=== PATIENT | female | born 1990 | race Caucasian/White ===

== ENCOUNTER 2019-04-05 13:08 | Emergency (ER) | payer OTHER, SELFPAY ==
[2019-04-05 13:25] VITALS: BP 128/90; PULSE 90; RESP 18; TEMP 36.9; O2SAT 98; BMI 25.7
--- NOTE | 2019-04-05 13:47 | DI.US.S_ITS ---
PROCEDURE: US PELVIC COMPLETE INDICATIONS: PELVIC PAIN RIGHT OVARY HURTS TECHNIQUE: Real-time scanning was performed of the pelvic organs, with image documentation. No transvaginal imaging was obtained, secondary to patient pain. COMPARISON: None. FINDINGS: Transabdominal scanning: Limited scanning through the kidneys shows no hydronephrosis. No pathologic free abdominal or pelvic fluid. Endovaginal scanning: Uterus: Uterus is normal in size at 8.9 x 3.7 x 4.3 cm. The endometrium measures 3 mm in combined thickness. An IUD is seen at its expected location. Ovaries: The right ovary measures 4.1 x 2.6 x 2.6 cm. The left ovary measures 4.3 x 3.2 x 2.6 cm. The ovaries have a normal sonographic appearance, with several follicles seen. A dominant follicle seen on the left measuring up to 2.4 cm. No adnexal masses are seen. Normal appearing arterial flow is confirmed to each ovary. IMPRESSION: No imaging explanation is found for this patient's presenting symptoms. Dictated by: Julián Kilgore M.D. on 04/05/2019 at 13:54 Approved by: Julián Kilgore M.D. on 04/05/2019 at 13:56
--- NOTE | 2019-04-05 14:51 | ED_ITS ---
HPI - Female Genitourinary <UZIEL Roy - Last Filed: 04/05/19 17:25> General Chief complaint: Urogenital-Female Stated complaint: pelvic pain on right side passed out Time Seen by Provider: 04/05/19 14:05 Source: patient Mode of arrival: Wheelchair History of Present Illness HPI Narrative: 28-year-old female with a history of endometriosis, presents emergency department today complaining of a worsening exacerbation of her endometriosis pain since yesterday. She states she has a dull aching right- sided pain that is worse with palpation and movement. She has been taking Tylenol. She states she has stopped taking NSAIDs for the past few months as her primary care provider was worried about her getting ulcer. She denies any vaginal bleeding or dysuria at this time. Patient reports nausea but denies vomiting, chest pain, shortness of breath, high fevers, or other concerns. Patient states she does not have her appendix. She reports she usually takes 4 mg of Dilaudid for pain. Related Data Previous Rx's Medication Instructions Recorded oxycodone 5 mg PO Q6H PRN #14 tab 04/05/19 Review of Systems <UZIEL Roy - Last Filed: 04/05/19 17:25> Review of Systems Narrative: REVIEW OF SYSTEMS: GENERAL: Denies fever, chills, malaise, or wt. loss. HENT: No head trauma, sore throat, or dysphagia. EYES: No loss of vision, double vision, eye pain, or irritation. CARDIOVASCULAR: No chest pain, palpitations, or orthopnea. RESPIRATORY: No shortness of breath or cough. GASTROINTESTINAL: Complains of right lower quadrant abdominal pain, see HPI GENITOURINARY: No flank pain, urinary incontinence, hesitancy, frequency, or dysuria. No vaginal discharge or dyspareunia. Denies concerns for STIs MUSCULOSKELETAL: No pain, weakness, or trauma. INTEGUMENTARY: No rash, lesions, or pruritus. NEURO: No numbness, tingling, memory loss, confusion, or headaches. PSYCH: No behavior or mood changes. Patient History <UZIEL Roy - Last Filed: 04/05/19 17:25> alcohol intake frequency: other Substance Use Type: does not use Exam <UZIEL Roy - Last Filed: 04/05/19 17:25> Initial Vital Signs Initial Vital Signs: Vital Signs Temperature 98.4 F 04/05/19 13:25 Pulse Rate 90 04/05/19 13:25 Respiratory Rate 18 04/05/19 13:25 Blood Pressure 128/90 04/05/19 13:25 Pulse Oximetry 98 04/05/19 13:25 PHYSICAL EXAMINATION: GENERAL: Well groomed, alert, and cooperative. Answers questions promptly and appropriately. Vital signs noted. HENT: Normocephalic, atraumatic. Hearing intact. Oral mucosa is pink and moist. EYES: Conjunctiva pink, sclera white, no periorbital swelling. CARDIOVASCULAR: S1 and S2 sounds normal. Regular rate and rhythm, no murmurs, clicks, or bruits. No pedal edema. RESPIRATORY: Normal respiratory rate, trachea midline, airway patent. No stridor, nasal flaring or accessory muscle use. Lungs are clear in all peterson without wheeze, rhonchi, or crackles. GASTROINTESTINAL: Bowel sounds normoactive. Tenderness to right and mid lower abdominal area. No rebound tenderness. No organomegaly, no palpable masses. GENITALURINARY: No flank tenderness. MUSCULOSKELETAL: Normal gait and coordination. Equal tone and mass bilaterally. EXTREMITIES: CMS intact, no pedal edema. SKIN: Warm, dry, soft, appropriate color for ethnicity. No lesions, rashes, or wounds. NEURO: Alert and Oriented X 3. Good coordination. No ataxia, or sensory deficits, or cognitive issues. PSYCH: Appropriate affect and mood. <Cande House DO - Last Filed: 04/05/19 17:35> Initial Vital Signs Initial Vital Signs: Vital Signs Temperature 98.4 F 04/05/19 13:25 Pulse Rate 90 04/05/19 13:25 Respiratory Rate 18 04/05/19 13:25 Blood Pressure 128/90 04/05/19 13:25 Pulse Oximetry 98 04/05/19 13:25 Course <UZIEL Roy - Last Filed: 04/05/19 17:25> Course Course Narrative: Pelvic ultrasound was ordered, patient refused the inter vaginal portion of this examination. Patient was given 30 mg of IM Toradol, 1 mg of IM Dilaudid, and 1 Percocet. She reports her pain has improved but she has a high pain tolerance in usually receives 4 mg of Dilaudid IM. I had a discussion with patient at this time that this large of dose will not happen. Patient was understandably agreeable. Orders Ordered: ED Orders 04/05/19 13:47 US pelvic complete Stat Discontinued Medications Hydromorphone HCl (Dilaudid) 1 mg IM NOW ONE Stop: 04/05/19 15:55 Last Admin: 04/05/19 16:07 Dose: 1 mg Documented by: SANIYA Ketorolac Tromethamine (Toradol) 30 mg IM NOW ONE Stop: 04/05/19 14:49 Last Admin: 04/05/19 15:03 Dose: 30 mg Documented by: BERE Ondansetron HCl (Zofran Odt) 4 mg SL NOW ONE Stop: 04/05/19 14:53 Last Admin: 04/05/19 15:02 Dose: 4 mg Documented by: BERE Oxycodone/Acetaminophen (Percocet 5/325) 1 tab PO NOW ONE Stop: 04/05/19 14:49 Last Admin: 04/05/19 15:02 Dose: 1 tab Documented by: BERE Consultations Consultation #1: Patient staffed with Dr. House Vital Signs Vital signs: Vital Signs - 8 hr 04/05/19 13:25 04/05/19 15:10 Temperature 98.4 F Pulse Rate 90 71 Respiratory Rate 18 16 Blood Pressure 128/90 Blood Pressure [Right Arm] 115/74 Pulse Oximetry 98 99 <Cande House, DO - Last Filed: 04/05/19 17:35> Orders Ordered: ED Orders 04/05/19 13:47 US pelvic complete Stat Discontinued Medications Hydromorphone HCl (Dilaudid) 1 mg IM NOW ONE Stop: 04/05/19 15:55 Last Admin: 04/05/19 16:07 Dose: 1 mg Documented by: SANIYA Ketorolac Tromethamine (Toradol) 30 mg IM NOW ONE Stop: 04/05/19 14:49 Last Admin: 04/05/19 15:03 Dose: 30 mg Documented by: BERE Ondansetron HCl (Zofran Odt) 4 mg SL NOW ONE Stop: 04/05/19 14:53 Last Admin: 04/05/19 15:02 Dose: 4 mg Documented by: BERE Oxycodone/Acetaminophen (Percocet 5/325) 1 tab PO NOW ONE Stop: 04/05/19 14:49 Last Admin: 04/05/19 15:02 Dose: 1 tab Documented by: BERE Vital Signs Vital signs: Vital Signs - 8 hr 04/05/19 13:25 04/05/19 15:10 Temperature 98.4 F Pulse Rate 90 71 Respiratory Rate 18 16 Blood Pressure 128/90 Blood Pressure [Right Arm] 115/74 Pulse Oximetry 98 99 MDM - Female Genitourinary <UZIEL Roy - Last Filed: 04/05/19 17:25> Medical Records Attestation: I reviewed the patient's medical records. Lab Data Attestation: I reviewed the patient's lab results. Labs: Point of Care Testing Test Results Negative Urine Dip Bedside Urine Glucose Negative Bedside Urine Bilirubin - Negative Bedside Urine Ketone - Negative Urine Specific [place] 1.010 Bedside Urine Occult Blood - Negative Bedside Urine pH 6.0 Bedside Urine Protein - Negative Bedside Urine Urobilinogen - Negative Bedside Urine Nitrite - Negative Bedside Urine Leukocytes - Negative Esterase Imaging Data US - [employer]: Radiologist's Impression: [place] [address] Ultrasound Report Signed Patient: Warren Burger#: [id number] : 1990Acct:[id number] Age/Sex: 28 / FDate of Service: 04/05/19 Loc: ED Accession Number: [id number] Procedure: US pelvic complete Ordering Provider: Jill Baum PROCEDURE: US PELVIC COMPLETE INDICATIONS: PELVIC PAIN RIGHT OVARY HURTS TECHNIQUE: Real-time scanning was performed of the pelvic organs, with image documentation. No transvaginal imaging was obtained, secondary to patient pain. COMPARISON: None. FINDINGS: Transabdominal scanning: Limited scanning through the kidneys shows no hydronephrosis. No pathologic free abdominal or pelvic fluid. Endovaginal scanning: Uterus: Uterus is normal in size at 8.9 x 3.7 x 4.3 cm. The endometrium measures 3 mm in combined thickness. An IUD is seen at its expected location. Ovaries: The right ovary measures 4.1 x 2.6 x 2.6 cm. The left ovary measures 4.3 x 3.2 x 2.6 cm. The ovaries have a normal sonographic appearance, with several follicles seen. A dominant follicle seen on the left measuring up to 2.4 cm. No adnexal masses are seen. Normal appearing arterial flow is confirmed to each ovary. IMPRESSION: No imaging explanation is found for this patient's presenting symptoms. Dictated by: Julián Kilgore M.D. on 04/05/2019 at 13:54 Approved by: Julián Kilgore M.D. on 04/05/2019 at 13:56 [facility] Narrative Medical decision making narrative: 28-year-old female with a history of endometriosis reporting a ?bad exacerbation ?presents emergency department for worsening right-sided pain. She reports she does not have her appendix. Abdominal ultrasound was conducted that shows normal blood flow to both ovaries. Patient declined the inner vaginal portion of the ultrasound. I suspect patient's pain is most likely caused by worsening endometriosis. Differential also includes gastroenteritis but less likely due to lack of vomiting or diarrhea. Less likely ovarian torsion or tubal as POC preg test was negative and normal blood flow was seen on ultrasound to both ovaries. Patient was given pain medications in the emergency department which improved her pain. She was counseled extensively about the importance of follow-up with her primary care provider in [employer]. Patient was given strict return precautions. <Cande Iván House, - Last Filed: 04/05/19 17:35> Lab Data Labs: Point of Care Testing Test Results Negative Urine Dip Bedside Urine Glucose Negative Bedside Urine Bilirubin - Negative Bedside Urine Ketone - Negative Urine Specific [place] 1.010 Bedside Urine Occult Blood - Negative Bedside Urine pH 6.0 Bedside Urine Protein - Negative Bedside Urine Urobilinogen - Negative Bedside Urine Nitrite - Negative Bedside Urine Leukocytes - Negative Esterase [facility] Narrative Medical decision making narrative: Case was discussed with myself. Patient by reported history has endometriosis with recurrent pain, has had appendectomy. Has negative preg test and US shows no major change to ovaries today. Patient requesting 4mg Dilaudid IM which was felt to be inappropriate for chronic pain control in the ED. Alternate medication and dosing was used and patient encouraged to follow up with primary care in [place]. Discharge Plan Departure Patient Disposition: Home Clinical Impression: Abdominal pain Qualifiers: Abdominal location: generalized Qualified Code(s): R10.84 - Generalized ab dominal pain Discharge Date/Time: 04/05/19 16:10 Instructions: DI for Endometriosis Activity Restrictions/Additional Instructions: Thank you for entrusting me with your care today. As discussed, your ultrasound is negative for any concerning etiology at this time. You have been prescribed a narcotic medication, this medication can make you drowsy. Do not drive while using this medication or perform activities that require mental alertness. These medications can also make you constipated, please use [id number] docusate sodium as needed for constipation. Please follow-up with your primary care provider as soon as possible for re-evaluation. Return emergency department for new or worsening symptoms such as uncontrollable vomiting, high fevers, chest pain, shortness breath, or other concerns. Prescriptions: New oxycodone 5 mg tablet 5 mg PO Q6H PRN (Reason: pain) Qty: 14 RF: 0
[2019-04-05] MEDS: ONDANSETRON 4 MG ODT SL (15:02)
[2019-04-05] MEDS: OXYCODONE/ACETAMINOPHEN 5/325 TABLET 1 TAB PO (15:02)
[2019-04-05] MEDS: KETOROLAC 60 MG/2 ML VIAL 30 MG IM (15:03)
[2019-04-05 15:10] VITALS: BP 115/74; PULSE 71; RESP 16; O2SAT 99
[2019-04-05] MEDS: HYDROMORPHONE 1 MG INJ IM (16:07)
== END 2019-04-05 16:10 | disposition home or self-care (01) ==
PROVIDERS: Emergency Provider Nurse Practitioner
DX: R10.31 Right lower quadrant pain (principal); R11.0 Nausea
CPT/HCPCS: 76856; 81003; 81025; 96372; 99283; J1170; J1885

== ENCOUNTER 2019-06-20 21:20 | Emergency (ER) | payer OTHER, SELFPAY ==
[2019-06-20 21:34] VITALS: BP 154/80; PULSE 98; RESP 20; TEMP 36.8; O2SAT 99
--- NOTE | 2019-06-20 21:44 | DI.US.S_ITS ---
PROCEDURE: US PELVIC COMPLETE INDICATIONS: INCREASING PAIN WITH KNOWN RIGHT OVARIAN CYST TECHNIQUE: Real-time scanning was performed of the pelvic organs, with image documentation. Additional endovaginal scanning was necessary due to incomplete visualization of the adnexal and endometrial structures by transabdominal scanning. COMPARISON: [facility], , US PELVIC COMPLETE, 04/05/2019, 14:24. FINDINGS: Transabdominal scanning: Limited scanning through the kidneys shows no hydronephrosis. No pathologic free abdominal or pelvic fluid. Endovaginal scanning: Uterus: Uterus is normal in size at 8.2 x 4.1 x 5.2 cm. The endometrium measures 8 mm in combined thickness. An IUD is seen at its expected location. Ovaries: The right ovary measures 4.1 x 3.9 x 4.1 cm and demonstrates a simple cyst that measures up to 3.9 cm. The left ovary measures 2.5 x 1.5 x 1.6 cm. The ovaries have a normal sonographic appearance. No adnexal masses are seen. IMPRESSION: Simple appearing right ovarian cyst that measures up to 3.9 cm. In a patient of this age, this is attributed to benign, functional cyst. At clinical discretion, a followup pelvic ultrasound is suggested in 6 weeks to assure resolution/ improvement. An IUD is seen at its expected location. Note: No significant discrepancy from the preliminary report. Dictated by: Julián Kilgore M.D. on 06/21/2019 at 7:26 Approved by: Julián Kilgore M.D. on 06/21/2019 at 7:28
--- NOTE | 2019-06-20 21:44 | ED.GENADULT ---
HPI - General Adult General Chief complaint: Abdominal Pain Stated complaint: thinks ruptured a cyst Time Seen by Provider: 06/20/19 21:44 Source: patient Mode of arrival: Ambulatory Limitations: no limitations History of Present Illness HPI narrative: 28-year-old female here for evaluation of right-sided pelvic pain. She was diagnosed with a right-sided ovarian cyst of 2.9 cm approximately 1 week ago. She states that earlier today she had a sudden increase in pain in her right pelvis. She thinks that the cyst ruptured. No urinary symptoms. Has an IUD in place that was inserted over a year ago. No vaginal bleeding. Some nausea no vomiting. No fevers. Related Data Home Medications Medication Instructions Recorded Confirmed nortriptyline 06/20/19 Previous Rx's Medication Instructions Recorded oxycodone 5 mg PO Q6H PRN #14 tab 04/05/19 Allergies Allergy/AdvReac Type Severity Reaction Status Date / Time codeine AdvReac ITCHING Verified 06/20/19 22:56 doxycycline AdvReac Fatigued Verified 06/20/19 22:56 Review of Systems Constitutional Constitutional: Denies fever(s) Cardiovascular Cardiovascular: Denies chest pain and Denies dyspnea Respiratory Respiratory: Denies dyspnea Gastrointestinal Gastrointestinal: Reports abdominal pain (Right lower quadrant/pelvis), Reports nausea and Denies vomiting Genitourinary Comments: Right pelvic pain Integumentary/Breasts Skin/Breast: Denies rash Neurologic Neurologic: Denies behavioral changes Psychiatric Psychiatric: Denies behavioral changes Hematologic/Lymphatic Hematologic/Lymphatic: Denies easy bleeding and Denies easy bruising Patient History Medical History Ovarian cyst (Acute) Social History Smoking Status: Former smoker Smoking Status: Former smoker alcohol intake frequency: holidays/special occasions only Substance Use Type: does not use Exam Initial Vital Signs Initial Vital Signs: Vital Signs Temperature 98.2 F 06/20/19 21:34 Pulse Rate 98 H 06/20/19 21:34 Respiratory Rate 20 06/20/19 21:34 Blood Pressure 154/80 H 06/20/19 21:34 Pulse Oximetry 99 06/20/19 21:34 Const General: cooperative and comfortable Limitations: mental status not altered Resp Effort & Inspection: normal respiratory effort GI Inspection: non-distended Palpation: soft, No firm and No tender Other: Right-sided adnexa pain Back/Spine/Pelvis Back: No CVA tenderness Skin Lesions: no lesions Extrem General: normal to inspection and capillary refill normal Course Orders Ordered: ED Orders 06/20/19 21:44 US pelvic complete Stat Discontinued Medications Hydrocodone Bitart/Acetaminophen ([place] 5/325) 1 tab PO NOW ONE Stop: 06/20/19 21:45 Last Admin: 06/20/19 21:53 Dose: 1 tab Documented by: BROOKLYN Hydrocodone Bitart/Acetaminophen (Vicod[place] 5/325 Prepack) 1 bottle MISC SEEINSTR ONE Stop: 06/21/19 00:01 Ketorolac Tromethamine (Toradol) 30 mg IM NOW ONE Stop: 06/20/19 22:51 Last Admin: 06/20/19 23:03 Dose: Not Given Documented by: BROOKLYN Ketorolac Tromethamine (Toradol) 30 mg IV NOW ONE Stop: 06/20/19 23:03 Last Admin: 06/20/19 23:03 Dose: 30 mg Documented by: BROOKLYN Ondansetron HCl (Zofran Odt) 4 mg SL NOW ONE Stop: 06/20/19 21:55 Last Admin: 06/20/19 21:56 Dose: 4 mg Documented by: BROOKLYN Ondansetron HCl (Zofran Odt Prepack) 1 bottle MISC SEEINSTR ONE Stop: 06/21/19 00:01 Vital Signs Vital signs: Vital Signs - 8 hr 06/20/19 21:34 06/20/19 22:58 Temperature 98.2 F Pulse Rate 98 H 86 Respiratory Rate 20 16 Blood Pressure 154/80 H Blood Pressure [Left Arm] 132/79 Pulse Oximetry 99 100 Medical Decision Making Lab Data Lab results reviewed: Yes I reviewed the patient's lab results. Labs: Point of Care Testing Test Results Negative Urine Dip Bedside Urine Glucose Negative Bedside Urine Bilirubin - Negative Bedside Urine Ketone +/- 5 Urine Specific [place] 1.015 Bedside Urine Occult Blood - Negative Bedside Urine pH 7.0 Bedside Urine Protein - Negative Bedside Urine Urobilinogen +/- 1mg Bedside Urine Nitrite - Negative Bedside Urine Leukocytes - Negative Esterase Point of care testing: Point of Care Testing Test Results Negative Urine Dip Bedside Urine Glucose Negative Bedside Urine Bilirubin - Negative Bedside Urine Ketone +/- 5 Urine Specific [place] 1.015 Bedside Urine Occult Blood - Negative Bedside Urine pH 7.0 Bedside Urine Protein - Negative Bedside Urine Urobilinogen +/- 1mg Bedside Urine Nitrite - Negative Bedside Urine Leukocytes - Negative Esterase MDM Narrative Medical decision making narrative: Urine negative. test negative. Ultrasound today shows a simple right-sided 3.9 cm cyst without signs of torsion. On exam her symptoms do seem to be adnexal and not right lower quadrant. She had a CT scan done 1 week ago for the same pain that she has today which is where the diagnosis of the cyst came from. I feel that we could hold on a CT scan for now. Will send home with symptom control. She was given return precautions. Considered other potential diagnosis such as appendicitis however I feel given her physical exam that this is unlikely given the ultrasound result. No indication for emergent surgical consultation. Patient expressed understanding and agreement plan. Discharge Plan Departure Patient Disposition: Home Clinical Impression: Ovarian cyst Qualifiers: Laterality: right Qualified Code(s): N83.201 - Unspecified ovarian cyst, right side Instructions: DI for Ovarian Cyst Activity Restrictions/Additional Instructions: Take the medications as directed. Recommend you contact your primary provider and also your medical assistant ob gyn provider for follow-up when you return home. Return to the emergency department for any new or worsening symptoms like we discussed Prescriptions: No Action oxycodone 5 mg tablet 5 mg PO Q6H PRN (Reason: pain) Qty: 14 RF: 0 nortriptyline RF: 0
[2019-06-20] MEDS: HYDROCODONE/ACET 5/325 TABLET 1 TAB PO (21:53)
[2019-06-20] MEDS: ONDANSETRON 4 MG ODT SL (21:56)
[2019-06-20 22:58] VITALS: BP 132/79; PULSE 86; RESP 16; O2SAT 100
[2019-06-20] MEDS: KETOROLAC 60 MG/2 ML VIAL 30 MG IV (23:03)
[2019-06-21] MEDS: HYDROCODONE/ACET 5/325 PREPACK 1 BOTTLE MISC (00:19)
[2019-06-21] MEDS: ONDANSETRON 4 MG ODT PREPACK 1 BOTTLE MISC (00:19)
[2019-06-21 00:23] VITALS: BP 133/86; PULSE 86; RESP 19; TEMP 36.8; O2SAT 99
== END 2019-06-21 00:24 | disposition home or self-care (01) ==
PROVIDERS: Emergency Provider Emergency Medicine
DX: N83.201 Unspecified ovarian cyst, right side (principal)
CPT/HCPCS: 36415; 76830; 76856; 81003; 81025; 96374; 99284; J1885

== ENCOUNTER 2022-08-06 16:33 | Emergency (ER) | payer OTHER, SELFPAY ==
[2022-08-06] VITALS (16 sets, daily range): BP systolic 132–160; BP diastolic 76–94; PULSE 71–89; RESP 14–28; TEMP 36.6; O2SAT 96–100; BMI 30.9
[2022-08-06] MEDS: ONDANSETRON 4 MG/2 ML INJ IV ×2 (16:57→22:28)
[2022-08-06 17:02] LABS: Add Manual Diff / Slide Review NO; Basophils Absolute Auto 100 /uL (0-100); Basophils Percent Auto 0.8 % (0-2); Eosinophils Absolute Auto 100 /uL (0-450); Eosinophils Percent Auto 0.8 % (2-4); Hematocrit 39.8 % (36-46); Hemoglobin 13.8 g/dL (12.0-16.0); Lymphocytes Absolute Auto 1600 /uL (1100-4500); Lymphocytes Percent Auto 21.2 % (25-40); Mean Corpuscular HGB Conc 34.8 % (30-36); Mean Corpuscular Hemoglobin 31.9 PG (26-34); Mean Corpuscular Volume 91.8 fL (80-100); Monocytes Absolute Auto 400 /uL (0-900); Monocytes Percent Auto 4.8 % (3-14); Neutrophils Absolute Auto 5600 /uL (1500-7000); Neutrophils Percent Auto 72.4 % (50-75); Platelet Count 367 X10^3/uL (150-400); Red Blood Cell Count 4.34 X10^6/uL (4.0-5.2); White Blood Cell Count 7.7 X10^3/uL (4.5-11.0)
[2022-08-06 17:36] LABS: Alanine Aminotransferase 15 IU/L (<35); Albumin 4.9 g/dL (3.5-5.0); Albumin Globulin Ratio 1.5 (1.0-2.8); Alkaline Phosphatase 47 U/L (38-126); Aspartate Aminotransferase 22 IU/L (14-36); BUN Creatinine Ratio 13.5 (6-22); Bilirubin Total 0.8 mg/dL (0.2-1.3); Blood Urea Nitrogen 10 mg/dL (7-17); Calcium 9.3 mg/dL (8.4-10.2); Carbon Dioxide 25 mmol/L (22-32); Chloride 103 mmol/L (98-107); Estimated Glomerular Filt Rate > 60 mL/min (>60); Globulin 3.3 g/dL (1.7-4.1); Glucose 97 mg/dL (70-100); HEMOLYSIS 26 (0-50); Lipase 73 U/L (23-300); Potassium 3.9 mmol/L (3.4-5.1); Sodium 137 mmol/L (137-145); Total Protein 8.2 g/dL (6.3-8.2)
[2022-08-06] MEDS: MORPHINE 4 MG/ML INJ IV (18:03)
--- NOTE | 2022-08-06 19:01 | ED_ITS ---
HPI - General Adult General Chief complaint: Abdominal Pain Stated complaint: abd pain, nausea, vaginal bleeding, Time Seen by Provider: 08/06/22 17:01 Source: patient Mode of arrival: Ambulatory History of Present Illness HPI narrative: There 31-year-old woman, G 3p2 with 1 ectopic , history of endometriosis, adenomyosis and polycystic ovarian disease presents with increasing right low quadrant/pelvic pain. She states that she began feeling some twinges in the right lower quadrant last night but the severe pain started at 1:00 p.m. today is increasing. She is been having some bright red spotting. She is concerned that she has another ectopic . She notes that she has not had any fevers, cough, chills. She did have a normal bowel movement earlier today that did not influence her pain and was not bloody. Related Data Home Medications Medication Instructions Recorded Confirmed nortriptyline 06/20/19 Previous Rx's Medication Instructions Recorded oxycodone 5 mg tablet 5 mg PO Q6H PRN pain #14 tabs 04/05/19 Allergies Allergy/AdvReac Type Severity Reaction Status Date / Time cephalexin [From Keflex] AdvReac Intermediate Vomiting Verified 08/06/22 16:51 codeine AdvReac ITCHING Verified 08/06/22 16:51 doxycycline AdvReac Fatigued Verified 08/06/22 16:51 Review of Systems Review of Systems Narrative: Pertinent positive and negative findings as per HPI Patient History Medical History (Updated 08/06/22 @ 22:19 by Emelia Nieto MD) Adenomyosis Endometriosis Ovarian cyst Polycystic ovary disease Social History Smoking Status: Former smoker Smoking Status: Former smoker alcohol intake frequency: holidays/special occasions only Substance Use Type: marijuana Exam Initial Vital Signs Initial Vital Signs: Vital Signs Temperature 97.8 F 08/06/22 16:46 Pulse Rate 89 08/06/22 16:46 Respiratory Rate 18 08/06/22 16:46 Blood Pressure 160/92 H 08/06/22 16:46 Pulse Oximetry 97 08/06/22 16:46 Oxygen Delivery Method Room Air 08/06/22 16:46 General: Healthy appearing, in moderate distress secondary to pain.. Able to give a complete and coherent history. Well-nourished well-developed HEENT: Moist mucous membranes, normal sclera with reactive pupils, Respiratory: Lungs are clear to auscultation, no wheezing no rales no rhonchi. Full and symmetrical air movement Cardiac: Regular rate and rhythm no murmurs no bruits Abdomen: Soft, very tender in the right lower pelvis and lower quadrant area Bimanual exam: Exquisite tenderness in the right adnexa with less tenderness over the true right lower quadrant/expected appendix location. She is to tender to do a more thorough pelvic exam and I am unable to estimate adnexal mass or size uterus. She does have cervical motion tenderness however I think that is because it is irritating the right adnexa. There is some slight pink discharge, no unusual odor. Skin: Warm and dry, no rashes Neurologic: Grossly neurologically intact with no obvious asymmetries or abnormalities Extremities: No trauma, well perfused Psych: Cooperative, appropriate insight and affect Course Orders Ordered: ED Orders 08/06/22 16:53 Complete Blood Count AUTO DIFF Stat Comprehensive Metabolic Panel Stat Lipase Stat 08/06/22 19:08 US pelvic complete Stat 08/06/22 20:26 COVID19 -Nasal RAPID Stat 08/06/22 20:36 CT abdomen pelvis w con Stat Hydromorphone HCl (Hydromorphone 0.5 Mg Inj) 0.5 mg IV Q15MIN PRN PRN Reason: Pain, Last Admin: 08/06/22 20:45 Dose: 0.5 mg Documented By: Admin: 08/06/22 20:21 Dose: 0.5 mg Documented By: Admin: 08/06/22 19:21 Dose: 0.5 mg Documented By: FREDY Ondansetron HCl (Ondansetron 4 Mg Odt) 4 mg PO NOW PRN PRN Reason: Nausea And Vomiting Ondansetron HCl (Ondansetron 4 Mg/2 Ml Inj) 4 mg IV NOW PRN PRN Reason: Nausea And Vomiting Last Admin: 08/06/22 16:57 Dose: 4 mg Documented By: AMU Discontinued Medications Hydromorphone HCl (Hydromorphone 1 Mg Inj) 1 mg IV NOW ONE Stop: 08/06/22 20:37 Last Admin: 08/06/22 20:49 Dose: Not Given Documented By: FELICITA Sodium Chloride (Normal Saline 0.9%) 1,000 mls @ 1,000 mls/hr IV BOLUS ONE Stop: 08/06/22 20:11 Last Admin: 08/06/22 19:21 Dose: 1,000 mls/hr Documented By: FREDY Ketorolac Tromethamine (Ketorolac 30 Mg/Ml Vial) 15 mg IV NOW ONE Stop: 08/06/22 19:10 Last Admin: 08/06/22 19:22 Dose: 15 mg Documented By: FREDY Morphine Sulfate (Morphine 4 Mg/Ml Inj) 4 mg IV NOW ONE Stop: 08/06/22 17:54 Last Admin: 08/06/22 18:03 Dose: 4 mg Documented By: FREDY Ondansetron HCl (Ondansetron 4 Mg/2 Ml Inj) 4 mg IV NOW ONE Stop: 08/06/22 22:11 Oxycodone/Acetaminophen (Oxycodone/Acetaminophen 5/325 Tablet) 1 tab PO NOW ONE Stop: 08/06/22 22:07 Oxycodone/Acetaminophen (Oxycodone/Apap 5/325 Prepack) 1 bottle MISC SEEINSTR ONE Stop: 08/06/22 22:07 Oxycodone/Acetaminophen (Oxycodone/Acetaminophen 5/325 Tablet) 1 tab PO NOW ONE Stop: 08/06/22 22:12 Vital Signs Vital signs: Vital Signs - 8 hr 08/06/22 16:46 08/06/22 16:57 08/06/22 17:00 Temperature 97.8 F Pulse Rate 89 84 Respiratory Rate 18 Blood Pressure 160/92 H 140/77 Pulse Oximetry 97 99 Oxygen Delivery Method Room Air 08/06/22 17:00 08/06/22 17:30 08/06/22 17:30 Temperature Pulse Rate 84 83 Respiratory Rate Blood Pressure 145/83 H Pulse Oximetry 98 100 Oxygen Delivery Method Room Air 08/06/22 18:00 08/06/22 18:00 08/06/22 18:49 Temperature Pulse Rate 76 85 Respiratory Rate Blood Pressure 134/80 Pulse Oximetry 99 98 Oxygen Delivery Method 08/06/22 18:52 08/06/22 18:52 08/06/22 19:01 Temperature Pulse Rate 80 84 Respiratory Rate 23 26 H Blood Pressure 136/76 Pulse Oximetry 100 Oxygen Delivery Method 08/06/22 19:20 08/06/22 19:20 08/06/22 19:30 Temperature Pulse Rate 73 Respiratory Rate 28 H Blood Pressure 149/94 H 137/94 H Pulse Oximetry 99 Oxygen Delivery Method 08/06/22 19:30 08/06/22 20:00 08/06/22 20:00 Temperature Pulse Rate 77 80 Respiratory Rate 24 14 Blood Pressure 143/83 H Pulse Oximetry 99 99 Oxygen Delivery Method Room Air 08/06/22 20:30 08/06/22 20:30 08/06/22 21:02 Temperature Pulse Rate 75 82 Respiratory Rate 15 Blood Pressure 132/87 Pulse Oximetry 96 Oxygen Delivery Method Room Air 08/06/22 21:30 08/06/22 21:57 08/06/22 21:57 Temperature Pulse Rate 71 75 Respiratory Rate 14 23 Blood Pressure 146/88 H Pulse Oximetry 98 100 Oxygen Delivery Method 08/06/22 22:00 08/06/22 22:00 Temperature Pulse Rate 75 Respiratory Rate 23 Blood Pressure 145/91 H Pulse Oximetry 99 Oxygen Delivery Method Room Air Medical Decision Making Lab Data 08/06/22 16:53 08/06/22 16:53 Labs: Lab Results 08/06/22 08/06/22 08/06/22 Range/Units 16:53 16:53 20:26 WBC 7.7 (4.5-11.0) X10^3/uL RBC 4.34 (4.0-5.2) X10^6/uL Hgb 13.8 (12.0-16.0) g/dL Hct 39.8 (36-46) % MCV 91.8 (80-100) fL MCH 31.9 (26-34) PG MCHC 34.8 (30-36) % RDW 13.0 (11.6-14.8) % Plt Count 367 (150-400) X10^3/uL Neut % (Auto) 72.4 (50-75) % Lymph % (Auto) 21.2 L (25-40) % Walsh % (Auto) 4.8 (3-14) % Eos % (Auto) 0.8 L (2-4) % Baso % (Auto) 0.8 (0-2) % Neut # (Auto) 5600 (1077-4345) /uL Lymph # (Auto) 1600 (4307-9273) /uL Walsh # (Auto) 400 (0-900) /uL Eos # (Auto) 100 (0-450) /uL Baso # (Auto) 100 (0-100) /uL Sodium 137 (137-145) mmol/L Potassium 3.9 (3.4-5.1) mmol/L Chloride 103 (98-107) mmol/L Carbon Dioxide 25 (22-32) mmol/L BUN 10 (7-17) mg/dL Creatinine 0.74 (0.52-1.04) mg/dL Estimated GFR > 60 (>60) mL/min BUN/Creatinine Ratio 13.5 (6-22) Glucose 97 (70-100) mg/dL Calcium 9.3 (8.4-10.2) mg/dL Total Bilirubin 0.8 (0.2-1.3) mg/dL AST 22 (14-36) IU/L ALT 15 (<35) IU/L Alkaline Phosphatase 47 (38-126) U/L Total Protein 8.2 (6.3-8.2) g/dL Albumin 4.9 (3.5-5.0) g/dL Globulin 3.3 (1.7-4.1) g/dL Albumin/Globulin Ratio 1.5 (1.0-2.8) Lipase 73 (23-300) U/L SARS-CoV-2 (PCR) Negative (Negative) Point of Care Testing Test Results Negative Urine Dip Bedside Urine Glucose Negative Bedside Urine Bilirubin - Negative Bedside Urine Ketone - Negative Urine Specific [place] 1.005 Bedside Urine Occult Blood - Negative Bedside Urine pH 6.0 Bedside Urine Protein - Negative Bedside Urine Urobilinogen - Negative Bedside Urine Nitrite - Negative Bedside Urine Leukocytes - Negative Esterase Point of care testing: Point of Care Testing Test Results Negative Urine Dip Bedside Urine Glucose Negative Bedside Urine Bilirubin - Negative Bedside Urine Ketone - Negative Urine Specific [place] 1.005 Bedside Urine Occult Blood - Negative Bedside Urine pH 6.0 Bedside Urine Protein - Negative Bedside Urine Urobilinogen - Negative Bedside Urine Nitrite - Negative Bedside Urine Leukocytes - Negative Esterase MDM Narrative Medical decision making narrative: CC: Right lower quadrant/pelvic pain, this is an acute problem uncertain prognosis Complicating co-morbidities: Prior ectopic , ovarian cysts, ovarian torsion, endometriosis, adenomyosis, polycystic ovary disease Data collected from: patient Medical records reviewed: ER visit from June of 2019 for ovarian cyst is reviewed Differential considered: Ectopic, torsion, bowel obstruction, endomyometritis, adenomyosis Exam documented above, pertinent findings include: Exquisite right adnexal tenderness with minor red vaginal spotting Lab Test results independently reviewed as above. Pertinent findings: Urine test is negative Urine dip is negative Chemistries are completely unremarkable CBC shows normal white blood cell count and no evidence of acute anemia Imaging studies independently reviewed: Pelvic ultrasound does not show a torsion. She has a 7.2 x 4 x 4.4 cm anteverted uterus with IUD in place. Ovaries show a right-sided 1 measuring 3.2 x 4.1 x 1.8 with good vascular flow. The left is 2.7 x 2.2 x 1.9 again with good vascular flow. There is no fluid in the cul-de-sac. Treatments: IV fluids, parenteral Toradol, parenteral morphine parenteral Dilaudid Re-evaluations: [id number] patient was re-evaluated after the ultrasound and was having increasing pain. She was given additional narcotic medication and told that a CT scan was going to be done. She is re-examined now and finding that the pain medicine helps for short period of time but it is recurring. Reviewed with her findings of the CT scan and plans for discharge home. Discussion: 31-year-old woman with a history of cholecystectomy, appendectomy, endometriosis and adenomyosis who presents with severe right adnexal pain for approximately 24 hours with dramatic change about 1:00 p.m. getting significantly worse. She is having minor red spotting with this. Labs ultrasound and CT scan are all reassuring. There is no evidence for life-threatening abscess, bowel obstruct ion, ovarian torsion. She is not . I do not suspect pelvic inflammatory disease. All of these findings including reassuring blood work is reviewed with her. She understands and together we both agreed that this likely is something related to her chronic adenomyosis or endometriosis. She does have indomethacin and oral Dilaudid available at home for use should she need it. At this point I believe she is safe for discharge home. 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 We will give her 4 tablets of Percocet to take home and use over the next 12-24 hours if needed. She will follow-up with her OBGYN in [place] if things worsen and return to the ER if pain is uncontrollable. She is safe for discharge home Discharge Plan Departure Patient Disposition: Home Clinical Impression: Uterus, adenomyosis, Pelvic pain Instructions: DI for Pelvic Pain Activity Restrictions/Additional Instructions: Thank you for coming in today I am impressed with the amount pain that you are having, I am sorry that you are suffering so much. Fortunately, your blood work, ultrasound and CT scan are all quite reassuring. I am not finding any evidence for significant infection, ovarian torsion, you are not . There is no sign of abscess in your abdomen or other reasons for hospitalization, further workup or additional imaging. Using 400 mg of ibuprofen (2 [id number] pills) and 1 Tylenol every 6 hours can be very helpful in controlling pain. Do not combined ibuprofen with the indomethacin that you have available at home, choose 1 or the other as they are quite similar. Please do schedule follow-up with your OBGYN. If you find that you are getting worse or develop any new symptoms, please feel free to return to the emergency department for further evaluation. Prescriptions: No Action oxycodone 5 mg tablet 5 mg PO Q6H PRN (Reason: pain) Qty: 14 0RF nortriptyline Stand Alone Forms: Patient Portal/API
--- NOTE | 2022-08-06 19:08 | DI.US.S_ITS ---
PROCEDURE: US PELVIC COMPLETE INDICATIONS: RIGHT PELVIC PAIN TECHNIQUE: Real-time scanning was performed of the pelvic organs, with image documentation. Additional endovaginal scanning was necessary due to incomplete visualization of the adnexal and endometrial structures by transabdominal scanning. COMPARISON: [facility], , US PELVIC COMPLETE, 06/20/2019, 22:22. FINDINGS: Uterus: Uterus is anteverted and measures up to 7.2 x 4.0 x 4.4 cm. Endometrium measures up to 0.5 cm in thickness. An IUD appears in appropriate position, extending into the fundal endometrium. Ovaries: The right ovary measures 3.2 x 4.1 x 1.8 cm, with a calculated ovarian volume of 12.2 cc. The left ovary measures 2.7 x 2.2 x 1.9 cm, with a calculated ovarian volume of 5.9 cc. The ovaries have a normal sonographic appearance. Less than 12 follicles can be seen in each ovary. No adnexal masses. There is patent arterial flow demonstrated in the ovaries. Other: No pathologic free abdominal or pelvic fluid. IMPRESSION: 1. No acute sonographic abnormality in the pelvis. Specifically, no evidence of ovarian torsion. We strive to produce accurate, complete, and clear reports of imaging services. To assist us in improving patient care, this report was composed using standard report templates and voice recognition software. Therefore, it may contain abnormal punctuation, insertions and/or omissions. Occasional wrong-word or sound-alike substitutions may occur. Though we review the report and make efforts to correct it, we do recommend that the report be read carefully in proper context to recognize any text inaccuracies. Dictated by: Fernando Zamarripa M.D. on 08/06/2022 at 20:27 Approved by: Fernando Zamarripa M.D. on 08/06/2022 at 20:29
[2022-08-06] MEDS: SODIUM CHLORIDE 0.9% 1,000 ML 1000 ML IV (19:21)
[2022-08-06] MEDS: HYDROMORPHONE 0.5 MG INJ IV ×3 (19:21→20:45)
[2022-08-06] MEDS: KETOROLAC 30 MG/ML VIAL 15 MG IV (19:22)
--- NOTE | 2022-08-06 20:36 | DI.CT.S_ITS ---
PROCEDURE: CT ABDOMEN PELVIS W CON INDICATIONS: RLQ/pelvic pain with NL pelvic us TECHNIQUE: After the administration of IV contrast, axial sections were acquired from the lung bases to the pubic symphysis. Coronal and sagittal reformats were performed. For radiation dose reduction, the following was used: automated exposure control, adjustment of mA and/or kV according to patient size. COMPARISON: [facility], , PELVIC COMPLETE, 08/06/2022, 19:30. FINDINGS: Image quality: Excellent. Lung bases: There is a 0.4 cm nodule within the right lower lobe on series 5, image 10. Heart: Heart is normal in size. ABDOMEN: Liver: No mass lesion. Gallbladder: Surgically absent. Biliary ducts: There is biliary ductal dilatation, with the common bile duct measuring up to approximately 0.9 cm. No calcified common duct stones or discrete obstructing mass. Findings may reflect sequelae of prior cholecystectomy. Pancreas: Unremarkable. Spleen: Normal in size. Adrenal Glands: No adrenal nodules. Kidneys and Ureters: No hydronephrosis. There is a right extrarenal pelvis. Stomach and Bowel: Stomach, small bowel loops, and colon are normal in caliber and wall thickness. The appendix is surgically absent. Peritoneum: No abnormal intraperitoneal fluid. No free air. Ventral Wall: No hernia. Abdominal Nodes: No retroperitoneal or mesenteric adenopathy by size criteria. Vessels: Aorta and inferior vena cava are normal in size. PELVIS: Pelvic Organs: An IUD appears in appropriate position within the uterus. Bladder: Unremarkable. Pelvic Nodes: No enlarged lymph nodes. Miscellaneous: No inguinal hernias are seen. Bones: Visualized osseous structures demonstrate no suspicious focal lesions. IMPRESSION: 1. No definite acute intra-abdominal abnormality. 2. Mild biliary ductal dilatation without a calcified obstructing stone or discrete obstructing mass visualized. The findings suggest sequelae of prior cholecystectomy. Recommend correlation with laboratory values. Dictated by: Fernando Zamarripa M.D. on 08/06/2022 at 21:31 Approved by: Fernando Zamarripa M.D. on 08/06/2022 at 21:57
[2022-08-06 20:42] LABS: COVID19 -Nasal RAPID Negative (Negative)
[2022-08-06] MEDS: OXYCODONE/ACETAMINOPHEN 5/325 TABLET 1 TAB PO ×2 (22:33)
[2022-08-06] MEDS: OXYCODONE/APAP 5/325 PREPACK 1 BOTTLE MISC (22:35)
== END 2022-08-06 22:40 | disposition home or self-care (01) ==
PROVIDERS: Emergency Medicine; Emergency Provider Emergency Medicine
DX: N80.00 Endometriosis of the uterus, unspecified (principal); R10.2 Pelvic and perineal pain; Z20.822 Contact with and (suspected) exposure to COVID-19
CPT/HCPCS: 36415; 74177; 76830; 76856; 80053; 81003; 81025; 83690; 85025; 87635; 93975; 96361; 96374; 96375; 96376; 99284; 99285; C9803; J1170; J1885; J2270; J2405; Q9967

== ENCOUNTER 2022-11-16 22:57 | Emergency (ER) | payer OTHER, SELFPAY ==
[2022-11-16 23:02] VITALS: BP 160/102; PULSE 80; RESP 18; TEMP 37.1; O2SAT 99; BMI 31.7
[2022-11-16 23:35] LABS: Add Manual Diff / Slide Review NO; Basophils Absolute Auto 0 /uL (0-100); Basophils Percent Auto 0.4 % (0-2); Eosinophils Absolute Auto 100 /uL (0-450); Eosinophils Percent Auto 1.4 % (2-4); Hematocrit 34.3 % (36-46); Hemoglobin 12.2 g/dL (12.0-16.0); Lymphocytes Absolute Auto 1800 /uL (1100-4500); Lymphocytes Percent Auto 24.2 % (25-40); Mean Corpuscular HGB Conc 35.6 % (30-36); Mean Corpuscular Hemoglobin 32.2 PG (26-34); Mean Corpuscular Volume 90.4 fL (80-100); Monocytes Absolute Auto 400 /uL (0-900); Monocytes Percent Auto 5.7 % (3-14); Neutrophils Absolute Auto 5100 /uL (1500-7000); Neutrophils Percent Auto 68.3 % (50-75); Platelet Count 304 X10^3/uL (150-400); Red Blood Cell Count 3.79 X10^6/uL (4.0-5.2); Red Cell Distribution Width 12.8 % (11.6-14.8); White Blood Cell Count 7.4 X10^3/uL (4.5-11.0)
[2022-11-16 23:39] LABS: Alanine Aminotransferase 15 IU/L (<35); Albumin 4.2 g/dL (3.5-5.0); Albumin Globulin Ratio 1.2 (1.0-2.8); Alkaline Phosphatase 44 U/L (38-126); Aspartate Aminotransferase 20 IU/L (14-36); BUN Creatinine Ratio 10.1 (6-22); Bilirubin Total 0.4 mg/dL (0.2-1.3); Blood Urea Nitrogen 7 mg/dL (7-17); Calcium 8.3 mg/dL (8.4-10.2); Carbon Dioxide 25 mmol/L (22-32); Chloride 104 mmol/L (98-107); Estimated Glomerular Filt Rate > 60 mL/min (>60); Globulin 3.4 g/dL (1.7-4.1); Glucose 103 mg/dL (70-100); HEMOLYSIS < 15 (0-50); Lipase 251 U/L (23-300); Potassium 3.6 mmol/L (3.4-5.1); Sodium 136 mmol/L (137-145); Total Protein 7.6 g/dL (6.3-8.2)
[2022-11-16 23:55] VITALS: BP 145/81; PULSE 81; O2SAT 100
--- NOTE | 2022-11-16 23:59 | DI.CT.S_ITS ---
PROCEDURE: CT KIDNEY URETER BLADDER (KUB) INDICATIONS: R sided flank pain eval for stone. TECHNIQUE: Axial sections were acquired from the lung bases to the pubic symphysis. Coronal and sagittal reformats were performed. For radiation dose reduction, the following was used: automated exposure control, adjustment of mA and/or kV according to patient size. COMPARISON: , CT, CT ABDOMEN PELVIS W CON, 08/06/2022, 20:55. FINDINGS: Image quality: Excellent. Lung bases: A right lower lobe 0.4 cm pulmonary nodule on series 6, image 8 appears unchanged. There is minimal atelectasis. Heart: Heart is normal in size. URINARY: Right Kidney and Ureter: No stones or hydronephrosis. No hydroureter. Left Kidney and Ureter: No stones or hydronephrosis. No hydroureter. Bladder: Normal wall thickness. No stones. ABDOMEN: Liver: There is mild focal fatty infiltration in the anterior left hepatic lobe along the falciform ligament. Gallbladder: Surgically absent. Biliary ducts: There is mild biliary ductal dilatation redemonstrated likely related to prior cholecystectomy. Pancreas: Unremarkable. Spleen: Normal in size. Adrenal Glands: No adrenal nodules. Stomach and Bowel: Stomach, small bowel loops, and colon are normal in caliber and wall thickness. Appendix is surgically absent. Peritoneum: No abnormal intraperitoneal fluid. No free air. Ventral Wall: No hernia. Abdominal Nodes: No retroperitoneal or mesenteric adenopathy by size criteria. Vessels: Aorta and inferior vena cava are normal in size. PELVIS: Pelvic Organs: An IUD is demonstrated within the uterus. Pelvic Nodes: No enlarged lymph nodes. Miscellaneous: No inguinal hernias identified. Bones: Visualized osseous structures demonstrate no suspicious focal lesions. IMPRESSION: 1. No nephrolithiasis or obstructive uropathy. Dictated by: Fernando Zamarripa M.D. on 11/17/2022 at 1:32 Approved by: Fernando Zamarripa M.D. on 11/17/2022 at 1:41
--- NOTE | 2022-11-16 23:59 | ED.GENADULT ---
HPI - General Adult General Chief complaint: Abdominal Pain Stated complaint: bad backpain that goes into groin, nasua Time Seen by Provider: 11/16/22 23:41 Source: patient Mode of arrival: Family Vehicle Limitations: no limitations History of Present Illness HPI narrative: Patient is a 32-year-old female. Has been seen multiple times in this department and also at outside hospital for abdominal pain and pelvic pain. She was actually seen at [facility] earlier today for abdominal pain. I was able to review those notes. She had relatively normal labs and vital signs. She received pain medication. Decision was made not to perform any CT scans or ultrasounds she was discharged home. She comes to this emergency department stating that she is having right-sided abdominal pain. She states it is different from her normal endometriosis pain. Did start than the past 24 hours. No vomiting. No urinary symptoms. No change in bowel habits. She does have pain medication at home. Related Data Home Medications Medication Instructions Recorded Confirmed nortriptyline 06/20/19 Previous Rx's Medication Instructions Recorded oxycodone 5 mg tablet 5 mg PO Q6H PRN pain #14 tabs 04/05/19 Allergies Allergy/AdvReac Type Severity Reaction Status Date / Time cephalexin [From Keflex] AdvReac Intermediate Vomiting Verified 11/16/22 23:06 codeine AdvReac ITCHING Verified 11/16/22 23:06 doxycycline AdvReac Fatigued Verified 11/16/22 23:06 Review of Systems Constitutional Constitutional: Reports system reviewed and no additional complaints, except as documented Gastrointestinal Gastrointestinal: Reports system reviewed and no additional complaints, except as documented Genitourinary Genitourinary: Reports system reviewed and no additional complaints, except as documented Musculoskeletal Musculoskeletal: Reports system reviewed and no additional complaints, except as documented Integumentary/Breasts Skin/Breast: Reports system reviewed and no additional complaints, except as documented Patient History Medical History Adenomyosis Endometriosis Ovarian cyst Polycystic ovary disease Social History Smoking Status: Former smoker Smoking Status: Former smoker tobacco type: cigarettes alcohol intake frequency: holidays/special occasions only Substance Use Type: marijuana Exam Initial Vital Signs Initial Vital Signs: Vital Signs Temperature 98.7 F 11/16/22 23:02 Pulse Rate 80 11/16/22 23:02 Respiratory Rate 18 11/16/22 23:02 Blood Pressure 160/102 H 11/16/22 23:02 Pulse Oximetry 99 11/16/22 23:02 Oxygen Delivery Method Room Air 11/16/22 23:02 Const General: cooperative and No ill appearing [facility] Head: normal to inspection and normocephalic Resp Effort & Inspection: normal respiratory effort GI Inspection: normal to inspection and non-distended Palpation: soft and tender Skin General: no rashes or lesions noted Neuro General: patient alert, patient awake and moves all extremities Course Orders Ordered: ED Orders 11/16/22 23:18 Complete Blood Count AUTO DIFF Stat Comprehensive Metabolic Panel Stat Lipase Stat 11/16/22 23:59 CT kidney ureter bladder (KUB) Stat Ondansetron HCl (Ondansetron 4 Mg Odt) 4 mg SL NOW PRN PRN Reason: Nausea And Vomiting Ondansetron HCl (Ondansetron 4 Mg/2 Ml Inj) 4 mg IV NOW PRN PRN Reason: Nausea And Vomiting Discontinued Medications Acetaminophen (Acetaminophen 325 Mg Tablet) 650 mg PO NOW ONE Stop: 11/17/22 00:01 Last Admin: 11/17/22 00:26 Dose: 650 mg Documented By: HNG Vital Signs Vital signs: Vital Signs - 8 hr 11/16/22 23:02 Temperature 98.7 F Pulse Rate 80 Respiratory Rate 18 Blood Pressure 160/102 H Pulse Oximetry 99 Oxygen Delivery Method Room Air Medical Decision Making Lab Data Lab results reviewed: Yes I reviewed the patient's lab results. 11/16/22 23:18 11/16/22 23:18 Labs: Lab Results 11/16/22 11/16/22 Range/Units 23:18 23:18 WBC 7.4 (4.5-11.0) X10^3/uL RBC 3.79 L (4.0-5.2) X10^6/uL Hgb 12.2 (12.0-16.0) g/dL Hct 34.3 L (36-46) % MCV 90.4 (80-100) fL MCH 32.2 (26-34) PG MCHC 35.6 (30-36) % RDW 12.8 (11.6-14.8) % Plt Count 304 (150-400) X10^3/uL Neut % (Auto) 68.3 (50-75) % Lymph % (Auto) 24.2 L (25-40) % [place] % (Auto) 5.7 (3-14) % Eos % (Auto) 1.4 L (2-4) % Baso % (Auto) 0.4 (0-2) % Neut # (Auto) 5100 (7154-3534) /uL Lymph # (Auto) 1800 (6984-8684) /uL [place] # (Auto) 400 (0-900) /uL Eos # (Auto) 100 (0-450) /uL Baso # (Auto) 0 (0-100) /uL Sodium 136 L (137-145) mmol/L Potassium 3.6 (3.4-5.1) mmol/L Chloride 104 (98-107) mmol/L Carbon Dioxide 25 (22-32) mmol/L BUN 7 (7-17) mg/dL Creatinine 0.69 (0.52-1.04) mg/dL Estimated GFR > 60 (>60) mL/min BUN/Creatinine Ratio 10.1 (6-22) Glucose 103 H (70-100) mg/dL Calcium 8.3 L (8.4-10.2) mg/dL Total Bilirubin 0.4 (0.2-1.3) mg/dL AST 20 (14-36) IU/L ALT 15 (<35) IU/L Alkaline Phosphatase 44 (38-126) U/L Total Protein 7.6 (6.3-8.2) g/dL Albumin 4.2 (3.5-5.0) g/dL Globulin 3.4 (1.7-4.1) g/dL Albumin/Globulin Ratio 1.2 (1.0-2.8) Lipase 251 (23-300) U/L Point of Care Testing Test Results Negative Urine Dip Bedside Urine Glucose Negative Bedside Urine Bilirubin - Negative Bedside Urine Ketone - Negative Urine Specific [place] 1.020 Bedside Urine Occult Blood - Negative Bedside Urine pH 6.0 Bedside Urine Protein - Negative Bedside Urine Urobilinogen - Negative Bedside Urine Nitrite - Negative Bedside Urine Leukocytes - Negative Esterase Point of care testing: Point of Care Testing Test Results Negative Urine Dip Bedside Urine Glucose Negative Bedside Urine Bilirubin - Negative Bedside Urine Ketone - Negative Urine Specific [place] 1.020 Bedside Urine Occult Blood - Negative Bedside Urine pH 6.0 Bedside Urine Protein - Negative Bedside Urine Urobilinogen - Negative Bedside Urine Nitrite - Negative Bedside Urine Leukocytes - Negative Esterase Imaging Data CT scan - abdomen/pelvis: Radiologist's Impression: PROCEDURE:? CT KIDNEY URETER BLADDER (KUB) ? INDICATIONS:? R sided flank pain eval for stone. ? TECHNIQUE:? Axial sections were acquired from the lung bases to the pubic symphysis.? Coronal and sagittal reformats were performed.? For radiation dose reduction, the following was used: ?automated exposure control, adjustment of mA and/or kV according to patient size.? ? COMPARISON:? [facility], CT, CT ABDOMEN PELVIS W CON, 08/06/2022, 20:55. ? FINDINGS:? Image quality:? Excellent.? ? Lung bases:? A right lower lobe 0.4 cm pulmonary nodule on series 6, image 8 appears unchanged.? There is minimal atelectasis.? ? Heart:? Heart is normal in size. ? URINARY: Right Kidney and Ureter: ? No stones or hydronephrosis.? No hydroureter.? ? Left Kidney and Ureter: ? No stones or hydronephrosis.? No hydroureter. ? Bladder:? Normal wall thickness. No stones. ? ? ? ABDOMEN: Liver:? There is mild focal fatty infiltration in the anterior left hepatic lobe along the falciform ligament. Gallbladder:? Surgically absent. Biliary ducts:? There is mild biliary ductal dilatation redemonstrated likely related to prior cholecystectomy. Pancreas:? Unremarkable.? ? Spleen:? Normal in size.? ? Adrenal Glands:? No adrenal nodules.? ? ? Stomach and Bowel:? Stomach, small bowel loops, and colon are normal in caliber and wall thickness.? Appendix is surgically absent.? Peritoneum:? No abnormal intraperitoneal fluid.? No free air.? ? Ventral Wall: ? No hernia.? Abdominal Nodes:? No retroperitoneal or mesenteric adenopathy by size criteria.? Vessels:? Aorta and inferior vena cava are normal in size.? ? PELVIS: Pelvic Organs:? An IUD is demonstrated within the uterus. Pelvic Nodes: No enlarged lymph nodes.? Miscellaneous: No inguinal hernias identified. ? ? ? Bones:? Visualized osseous structures demonstrate no suspicious focal lesions. IMPRESSION:? ? 1. No nephrolithiasis or obstructive uropathy.? MDM Narrative Medical decision making narrative: We had a discussion regarding her presentation today. We also discussed the multiple CT scans she is had in the past in the risks of performing more CT scans. We also discuss the workup she had at the outside facility earlier today. Patient expressed understanding of this however she stated that she wanted a CT scan. States the pain that she was having is different than her normal discomfort. She expressed understanding of the risks of multiple CT scans. A CT scan her abdomen was ordered which did not show any acute pathology. I did inform the patient during my initial evaluation with her that she would not be receiving any opioid pain medication less we came up with a definitive diagnosis. She was offered non opioid pain control. She has oral Dilaudid at home. We did discuss the CT scan. We did discuss the lack of a definitive diagnosis but also discussed that there was no emergent surgical issue present. Will discharge the patient home to follow-up with her primary doctor. Discharge Plan Departure Patient Disposition: Home Clinical Impression: Abdominal pain Instructions: DI for Abdominal Pain-Adult Activity Restrictions/Additional Instructions: Continue to take all of your medications as directed and contact your doctor for follow-up. Prescriptions: No Action oxycodone 5 mg tablet 5 mg PO Q6H PRN (Reason: pain) Qty: 14 0RF nortriptyline Stand Alone Forms: Patient Portal/API
[2022-11-17] VITALS: BP 131/69; PULSE 77; O2SAT 100
[2022-11-17] MEDS: ACETAMINOPHEN 325 MG TABLET 650 MG PO (00:26)
[2022-11-17 00:28] VITALS: BP 128/73; PULSE 75; O2SAT 98
[2022-11-17 00:30] VITALS: BP 130/80; PULSE 68; O2SAT 98
[2022-11-17 01:00] VITALS: BP 128/79; PULSE 62; O2SAT 98
[2022-11-17 01:30] VITALS: BP 127/82; PULSE 81; O2SAT 100
[2022-11-17 02:00] VITALS: BP 121/83; PULSE 75; RESP 16; O2SAT 98
== END 2022-11-17 02:05 | disposition home or self-care (01) ==
PROVIDERS: Emergency Provider Emergency Medicine
DX: R10.9 Unspecified abdominal pain (principal)
CPT/HCPCS: 36415; 74176; 80053; 81003; 81025; 83690; 85025; 99284

== ENCOUNTER 2023-03-20 18:15 | Emergency (ER) | payer OTHER, SELFPAY ==
[2023-03-20] VITALS (8 sets, daily range): BP systolic 123–162; BP diastolic 74–93; PULSE 74–83; RESP 22; TEMP 36.6; O2SAT 96–100; BMI 26.6
[2023-03-20] MEDS: ONDANSETRON 4 MG/2 ML INJ IV (18:52)
[2023-03-20 19:17] LABS: Add Manual Diff / Slide Review NO; Alanine Aminotransferase 18 IU/L (<35); Albumin 4.4 g/dL (3.5-5.0); Albumin Globulin Ratio 1.4 (1.0-2.8); Alkaline Phosphatase 49 U/L (38-126); Aspartate Aminotransferase 24 IU/L (14-36); BUN Creatinine Ratio 13.2 (6-22); Basophils Absolute Auto 0 /uL (0-100); Basophils Percent Auto 0.5 % (0-2); Bilirubin Total 0.8 mg/dL (0.2-1.3); Blood Urea Nitrogen 9 mg/dL (7-17); Calcium 9.5 mg/dL (8.4-10.2); Carbon Dioxide 25 mmol/L (22-32); Chloride 106 mmol/L (98-107); Eosinophils Absolute Auto 100 /uL (0-450); Eosinophils Percent Auto 1.2 % (2-4); Estimated Glomerular Filt Rate > 60 mL/min (>60); Globulin 3.2 g/dL (1.7-4.1); Glucose 84 mg/dL (70-100); HEMOLYSIS < 15 (0-50); Hematocrit 36.4 % (36-46); Hemoglobin 12.5 g/dL (12.0-16.0); Lipase 54 U/L (23-300); Lymphocytes Absolute Auto 1100 /uL (1100-4500); Lymphocytes Percent Auto 20.9 % (25-40); Mean Corpuscular HGB Conc 34.3 % (30-36); Mean Corpuscular Hemoglobin 31.8 PG (26-34); Mean Corpuscular Volume 92.9 fL (80-100); Monocytes Absolute Auto 400 /uL (0-900); Monocytes Percent Auto 7.2 % (3-14); Neutrophils Absolute Auto 3600 /uL (1500-7000); Neutrophils Percent Auto 70.2 % (50-75); Platelet Count 278 X10^3/uL (150-400); Potassium 3.8 mmol/L (3.4-5.1); Red Blood Cell Count 3.92 X10^6/uL (4.0-5.2); Red Cell Distribution Width 13.2 % (11.6-14.8); Sodium 140 mmol/L (137-145); Total Protein 7.6 g/dL (6.3-8.2); White Blood Cell Count 5.2 X10^3/uL (4.5-11.0)
[2023-03-20 19:52] LABS: RBC Urine 0-1/HPF (0-5/HPF)
[2023-03-20 19:53] LABS: Amorphous Sediment Urine 1+; Bacteria Urine Occasional (0-1); Culture Indicated Urine Cult Not Indicated; Mucus Urine 1+ (Negative); Squamous Epithelial Cell Urine 1-5 /HPF (0-5/HPF); WBC Urine 1-5/HPF (0-5/HPF)
[2023-03-20] MEDS: KETOROLAC 30 MG/ML VIAL IV (21:05)
--- NOTE | 2023-03-20 21:19 | ED.GENADULT ---
HPI - General Adult General Chief complaint: Abdominal Pain Stated complaint: V/ab pain/fever T-1 Time Seen by Provider: 03/20/23 20:59 Source: patient Mode of arrival: Ambulatory History of Present Illness HPI narrative: Patient is a 32-year-old female. Here for evaluation of vomiting, right-sided abdominal pain and fever. She states that she has had symptoms like this in the past. She is had her appendix removed. Has also had her gallbladder removed. Has been diagnosed with endometriosis. Has also had colitis in the past. She has had a colonoscopy in the past. Is scheduled to see GI again in follow-up. Related Data Home Medications Medication Instructions Recorded Confirmed nortriptyline 06/20/19 Previous Rx's Medication Instructions Recorded oxycodone 5 mg tablet 5 mg PO Q6H PRN pain #14 tabs 04/05/19 hydrocodone 5 mg-acetaminophen 325 1 tab PO Q4-6H PRN pain #10 tabs 03/21/23 mg tablet promethazine 25 mg rectal 25 mg MA Q4-6H PRN nausea and 03/21/23 suppository vomiting #12 ea Allergies Allergy/AdvReac Type Severity Reaction Status Date / Time cephalexin [From Keflex] AdvReac Intermediate Vomiting Verified 11/16/22 23:06 codeine AdvReac ITCHING Verified 11/16/22 23:06 doxycycline AdvReac Fatigued Verified 11/16/22 23:06 morphine AdvReac Verified 03/20/23 18:26 Review of Systems Constitutional Constitutional: Reports system reviewed and no additional complaints, except as documented Cardiovascular Cardiovascular: Reports system reviewed and no additional complaints, except as documented Respiratory Respiratory: Reports system reviewed and no additional complaints, except as documented Gastrointestinal Gastrointestinal: Reports system reviewed and no additional complaints, except as documented Genitourinary Genitourinary: Reports system reviewed and no additional complaints, except as documented Integumentary/Breasts Skin/Breast: Reports system reviewed and no additional complaints, except as documented Hematologic/Lymphatic On Anticoagulants: No Patient History Medical History Adenomyosis Polycystic ovary disease Endometriosis Ovarian cyst Social History Smoking Status: Former smoker Smoking Status: Former smoker tobacco type: cigarettes alcohol intake frequency: holidays/special occasions only Substance Use Type: marijuana Exam Initial Vital Signs Initial Vital Signs: Vital Signs Temperature 98 F 03/20/23 18:26 Pulse Rate 74 03/20/23 18:26 Respiratory Rate 22 03/20/23 18:26 Blood Pressure 123/83 03/20/23 18:26 Pulse Oximetry 100 03/20/23 18:26 Oxygen Delivery Method Room Air 03/20/23 18:26 HENMT Head: normal to inspection and normocephalic Resp Effort & Inspection: normal respiratory effort Cardio Rate: regular rate GI Inspection: normal to inspection and non-distended Palpation: soft and tender (Significant tenderness with only very super facial palpation right abdomen) Skin General: no rashes or lesions noted Neuro General: patient alert, patient awake and moves all extremities Course Orders Ordered: ED Orders 03/20/23 18:30 Ictotest Urine Stat Urine Microscopic Stat 03/20/23 18:58 Complete Blood Count AUTO DIFF Stat Comprehensive Metabolic Panel Stat Lipase Stat 03/20/23 21:19 CT abdomen pelvis w con Stat 03/20/23 22:43 US pelvic complete Stat 03/20/23 23:10 Chlamydia Gonorrhea PCR -URINE Stat Discontinued Medications Hydrocodone Bitart/Acetaminophen (Hydrocodone/Acet 5/325 Tablet) 1 tab PO NOW ONE Stop: 03/21/23 00:05 Last Admin: 03/21/23 00:17 Dose: 1 tab Documented By: DYLLAN Hydrocodone Bitart/Acetaminophen (Hydrocodone/Acet 5/325 Tablet) 1 tab PO NOW ONE Stop: 03/21/23 00:57 Last Admin: 03/21/23 01:09 Dose: 1 tab Documented By: DYLLAN Hydromorphone HCl (Hydromorphone 1 Mg Inj) 1 mg IV NOW ONE Stop: 03/20/23 22:44 Last Admin: 03/20/23 22:56 Dose: 1 mg Documented By: DYLLAN Ketorolac Tromethamine (Ketorolac 30 Mg/Ml Vial) 30 mg IV NOW ONE Stop: 03/20/23 21:01 Last Admin: 03/20/23 21:05 Dose: 30 mg Documented By: DYLLAN Lorazepam (Lorazepam 2 Mg/Ml Inj) 1 mg IV NOW ONE Stop: 03/20/23 21:36 Last Admin: 03/20/23 21:46 Dose: 1 mg Documented By: DYLLAN Ondansetron HCl (Ondansetron 4 Mg Odt) 4 mg PO NOW PRN PRN Reason: Nausea And Vomiting Ondansetron HCl (Ondansetron 4 Mg/2 Ml Inj) 4 mg IV NOW PRN PRN Reason: Nausea And Vomiting Last Admin: 03/21/23 00:38 Dose: 4 mg Documented By: Admin: 03/20/23 18:52 Dose: 4 mg Documented By: KEZIA Vital Signs Vital signs: Vital Signs - 8 hr 03/20/23 21:10 03/20/23 21:11 03/20/23 21:11 Pulse Rate 80 Blood Pressure 162/80 H Pulse Oximetry 96 100 Oxygen Delivery Method Room Air 03/20/23 21:30 03/20/23 21:31 03/20/23 21:31 Pulse Rate 83 83 Blood Pressure 147/93 H Pulse Oximetry 99 99 Oxygen Delivery Method Room Air 03/20/23 22:00 03/20/23 22:30 03/20/23 22:34 Pulse Rate 78 83 75 Blood Pressure Pulse Oximetry 99 97 98 Oxygen Delivery Method Room Air Room Air 03/20/23 22:34 03/21/23 00:40 03/21/23 00:41 Pulse Rate 84 Blood Pressure 154/74 H Pulse Oximetry 99 99 Oxygen Delivery Method Room Air Room Air 03/21/23 00:41 Pulse Rate Blood Pressure 143/86 H Pulse Oximetry Oxygen Delivery Method Medical Decision Making Medical Records Medical records reviewed: Yes I reviewed the patient's medical records. Lab Data Lab results reviewed: Yes I reviewed the patient's lab results. 03/20/23 18:58 03/20/23 18:58 Labs: Lab Results 03/20/23 03/20/23 03/20/23 Range/Units 18:30 18:58 23:10 WBC 5.2 (4.5-11.0) X10^3/uL RBC 3.92 L (4.0-5.2) X10^6/uL Hgb 12.5 (12.0-16.0) g/dL Hct 36.4 (36-46) % MCV 92.9 (80-100) fL MCH 31.8 (26-34) PG MCHC 34.3 (30-36) % RDW 13.2 (11.6-14.8) % Plt Count 278 (150-400) X10^3/uL Neut % (Auto) 70.2 (50-75) % Lymph % (Auto) 20.9 L (25-40) % [place] % (Auto) 7.2 (3-14) % Eos % (Auto) 1.2 L (2-4) % Baso % (Auto) 0.5 (0-2) % Neut # (Auto) 3600 (1068-9757) /uL Lymph # (Auto) 1100 (3770-8057) /uL [place] # (Auto) 400 (0-900) /uL Eos # (Auto) 100 (0-450) /uL Baso # (Auto) 0 (0-100) /uL Sodium 140 (137-145) mmol/L Potassium 3.8 (3.4-5.1) mmol/L Chloride 106 (98-107) mmol/L Carbon Dioxide 25 (22-32) mmol/L BUN 9 (7-17) mg/dL Creatinine 0.68 (0.52-1.04) mg/dL Estimated GFR > 60 (>60) mL/min BUN/Creatinine Ratio 13.2 (6-22) Glucose 84 (70-100) mg/dL Calcium 9.5 (8.4-10.2) mg/dL Total Bilirubin 0.8 (0.2-1.3) mg/dL AST 24 (14-36) IU/L ALT 18 (<35) IU/L Alkaline Phosphatase 49 (38-126) U/L Total Protein 7.6 (6.3-8.2) g/dL Albumin 4.4 (3.5-5.0) g/dL Globulin 3.2 (1.7-4.1) g/dL Albumin/Globulin Ratio 1.4 (1.0-2.8) Lipase 54 (23-300) U/L Ur Bilirubin Confirm TNP Urine RBC 0-1/hpf (0-5/HPF) Urine WBC 1-5/hpf (0-5/HPF) Ur Squamous Epith Cells 1-5 /hpf (0-5/HPF) Amorphous Sediment 1+ Urine Bacteria Occasional (0-1) (None) Urine Mucus 1+ H (Negative) Ur Culture Indicated? Cult not indicated Ur Chlamydia DNA (PCR) Not detected N gonorrhoeae DNA (PCR) Not detected Point of Care Testing Test Results Negative Urine Dip Bedside Urine Glucose Negative Bedside Urine Bilirubin + 1 Bedside Urine Ketone ++ 40 Urine Specific [place] 1.030 Bedside Urine Occult Blood - Negative Bedside Urine pH 6.0 Bedside Urine Protein +/- 15 Bedside Urine Urobilinogen - Negative Bedside Urine Nitrite - Negative Bedside Urine Leukocytes - Negative Esterase Point of care testing: Point of Care Testing Test Results Negative Urine Dip Bedside Urine Glucose Negative Bedside Urine Bilirubin + 1 Bedside Urine Ketone ++ 40 Urine Specific [place] 1.030 Bedside Urine Occult Blood - Negative Bedside Urine pH 6.0 Bedside Urine Protein +/- 15 Bedside Urine Urobilinogen - Negative Bedside Urine Nitrite - Negative Bedside Urine Leukocytes - Negative Esterase Imaging Data CT scan - abdomen/pelvis: Radiologist's Impression: PROCEDURE: CT ABDOMEN PELVIS W CON INDICATIONS: R sided abd pain TECHNIQUE: After the administration of intravenous contrast, axial sections acquired from the lung bases to the pubic symphysis. Coronal and sagittal reformats were performed. For radiation dose reduction, the following was used: automated exposure control, adjustment of mA and/or kV according to patient size. COMPARISON: [facility], CT, CT ABDOMEN PELVIS W CON, 08/06/2022, 20:55. FINDINGS: Image quality: Diagnostic. Lung bases: Unremarkable. Heart: No significant findings. ABDOMEN: Liver: Mild focal fatty infiltration of the falciform ligament. Gallbladder: Status post cholecystectomy. Biliary ducts: Minimal prominence of the biliary ducts likely related to prior cholecystectomy. This is not significantly changed compared to the prior study. Pancreas: Unremarkable. Spleen: Unremarkable. Adrenal Glands: Unremarkable. Kidneys and Ureters: Unremarkable. Stomach and Bowel: Stomach, small bowel loops, and colon are unremarkable. Status post prior appendectomy. Peritoneum: No abnormal intraperitoneal fluid. No free air. Ventral Wall: No hernias. Abdominal Nodes: No retroperitoneal or mesenteric adenopathy by size criteria. Vessels: Aorta and inferior vena cava are normal in size. PELVIS: Pelvic Organs: Unremarkable. IUD is in place. Bladder: Unremarkable. Pelvic Nodes: No enlarged lymph nodes. Miscellaneous: No hernias are seen. Bones: Visualized osseous structures appear intact without acute fracture or focal destructive lesion. No acute compression fractures of the imaged spine. IMPRESSION: CT abdomen and pelvis without acute abnormalities to explain patient's symptoms. Stable postsurgical changes of prior cholecystectomy and appendectomy. US - SLOT SHIFT MANAGER: Radiologist's Impression: PROCEDURE: US PELVIC COMPLETE INDICATIONS: CHRONIC RIGHT ADNEXAL PAIN. MIRENA IUD PLACED 2019. NO MENSES SINCE 2018. H/O ENDOMETRIOSIS, ADENOMYOSIS, PCOS, AND LEFT TUBAL ECTOPIC IN 2018. TECHNIQUE: Real-time scanning was performed of the pelvic organs, with image documentation. Additional endovaginal scanning was necessary due to incomplete visualization of the adnexal and endometrial structures by transabdominal scanning. COMPARISON: [facility], , PELVIC COMPLETE, 08/06/2022, 19:30. FINDINGS: Uterus: Uterus is anteverted and normal in size at 8.6 x 4.8 x 4.4 cm. The myometrium is homogeneous. The endometrium measures 1 mm combined thickness. An intrauterine device is identified within the endometrial cavity and appears appropriately positioned. Ovaries: The right ovary measures 5.2 x 2.6 x 2.0 cm, with a calculated ovarian volume of 14 cc. The left ovary measures 3.2 x 2.1 x 2.1 cm, with a calculated ovarian volume of 7.2 cc. The ovaries have a normal sonographic appearance. Less than 12 follicles can be seen in each ovary. No adnexal masses are seen. Other: No pathologic free abdominal or pelvic fluid. Doppler: Normal arterial and venous waveforms visualized in the bilateral ovaries. IMPRESSION: Pelvic ultrasound without acute sonographic abnormalities. No evidence for ovarian torsion. An intrauterine device is in place and appears to be appropriately positioned within the endometrial cavity. MDM Narrative Medical decision making narrative: Workup here in the emergency department to include CT scan and ultrasound and labs are all unremarkable. She is no skin changes over the area. No indication for surgical consultation. GC and chlamydia negative. Low suspicion for PID. Patient has no concern about sexually transmitted infections. Had a discussion with the patient regarding her symptoms. Unfortunately I do not have a definitive diagnosis but she does have history of endometriosis and that very well could be the cause of her pain today. Patient expressed multiple times that her pain is not controlled. I did evaluate her SMILEY report. It appears that 10 days ago she was seen at an outside facility for the same complaints that she presents with today. On 04/01/2023 she filled 56 2 mg hydromorphone tablets prescribed by her primary provider. She states that because of her vomiting she is unable to take her medications at home. Inform the patient that I would not provide any more IV pain medications here in the ER. Initially gave her an oral dose of medicine but she vomited this pill up. When I advised her that she would not receive any more IV medication she was able to take a repeat dose of oral pain medicines without vomiting. Will not prescribe any outpatient opioid medications out of the emergency department. 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 Discharge Plan Departure Patient Disposition: Home Clinical Impression: Abdominal pain Instructions: DI for Abdominal Pain-Adult Activity Restrictions/Additional Instructions: Your workup here in the emergency department unfortunately did not give us a definitive diagnosis of your abdominal pain. I recommend that tomorrow you contact your primary care doctor. A prescription for nausea medicine was sent to the pharmacy of your choice. Further pain management will need to come from your primary care doctor. Prescriptions: New hydrocodone-acetaminophen 5-325 mg tablet 1 tab PO Q4-6H PRN (Reason: pain) Qty: 10 0RF promethazine 25 mg suppository 25 mg MA Q4-6H PRN (Reason: nausea and vomiting) Qty: 12 0RF No Action oxycodone 5 mg tablet 5 mg PO Q6H PRN (Reason: pain) Qty: 14 0RF nortriptyline Referrals: Miscellaneous,Doctor, MD [Primary Care Provider] - Stand Alone Forms: Patient Portal/API
[2023-03-20] MEDS: LORazepam 2 MG/ML INJ 1 MG IV (21:46)
--- NOTE | 2023-03-20 22:43 | DI.US.S_ITS ---
PROCEDURE: US PELVIC COMPLETE INDICATIONS: CHRONIC RIGHT ADNEXAL PAIN. MIRENA IUD PLACED 2019. NO MENSES SINCE 2018. H/O ENDOMETRIOSIS, ADENOMYOSIS, PCOS, AND LEFT TUBAL ECTOPIC IN 2018. TECHNIQUE: Real-time scanning was performed of the pelvic organs, with image documentation. Additional endovaginal scanning was necessary due to incomplete visualization of the adnexal and endometrial structures by transabdominal scanning. COMPARISON: [facility], , US PELVIC COMPLETE, 08/06/2022, 19:30. FINDINGS: Uterus: Uterus is anteverted and normal in size at 8.6 x 4.8 x 4.4 cm. The myometrium is homogeneous. The endometrium measures 1 mm combined thickness. An intrauterine device is identified within the endometrial cavity and appears appropriately positioned. Ovaries: The right ovary measures 5.2 x 2.6 x 2.0 cm, with a calculated ovarian volume of 14 cc. The left ovary measures 3.2 x 2.1 x 2.1 cm, with a calculated ovarian volume of 7.2 cc. The ovaries have a normal sonographic appearance. Less than 12 follicles can be seen in each ovary. No adnexal masses are seen. Other: No pathologic free abdominal or pelvic fluid. Doppler: Normal arterial and venous waveforms visualized in the bilateral ovaries. IMPRESSION: Pelvic ultrasound without acute sonographic abnormalities. No evidence for ovarian torsion. An intrauterine device is in place and appears to be appropriately positioned within the endometrial cavity. We strive to produce accurate, complete, and clear reports of imaging services. To assist us in improving patient care, this report was composed using standard report templates and voice recognition software. Therefore, it may contain abnormal punctuation, insertions and/or omissions. Occasional wrong-word or sound-alike substitutions may occur. Though we review the report and make efforts to correct it, we do recommend that the report be read carefully in proper context to recognize any text inaccuracies. Dictated by: Nicholas Leslie M.D. on 03/21/2023 at 0:13 Approved by: Nicholas Leslie M.D. on 03/21/2023 at 0:15
[2023-03-20] MEDS: HYDROMORPHONE 1 MG INJ IV (22:56)
[2023-03-21] MEDS: HYDROCODONE/ACET 5/325 TABLET 1 TAB PO ×2 (00:17→01:09)
[2023-03-21] MEDS: ONDANSETRON 4 MG/2 ML INJ IV (00:38)
[2023-03-21 00:40] VITALS: O2SAT 99
[2023-03-21 00:41] VITALS: BP 143/86; PULSE 84; O2SAT 99
[2023-03-21 00:45] LABS: Urine Chlamydia NOT DETECTED; Urine N gonorrhoeae NOT DETECTED
== END 2023-03-21 01:15 | disposition home or self-care (01) ==
PROVIDERS: Emergency Provider Emergency Medicine
DX: R10.9 Unspecified abdominal pain (principal)
CPT/HCPCS: 74177; 76830; 76856; 80053; 81003; 81015; 81025; 83690; 85025; 87491; 87591; 93975; 96374; 96375; 99284; J1170; J1885; J2060; J2405; Q9967